=== PATIENT | female | born 1995 | race Caucasian/White ===

== ENCOUNTER 2024-06-12 10:06 | Outpatient (CLI) | payer OTHER, SELFPAY ==
[2024-06-12 10:27] LABS: Hematocrit 34.1 % (37.0-47.0); Hemoglobin 11.3 g/dL (12.0-15.0); Mean Corpuscular HGB Conc 33.1 g/dl (32-36); Mean Corpuscular Hemoglobin 31.2 pg (26-34); Mean Corpuscular Volume 94.2 fl (80-100); Mean Platelet Volume 10.5 fl (7.4-10.4); Platelet Count Result 223 k/mm3 (150-375); Red Blood Count 3.62 M/mm3 (4.2-5.4); Red Cell Distribution Width 13.2 % (11.5-14.5); White Blood Count 5.7 K/mm3 (4.5-10.0)
--- OUTSIDE RECORDS SUMMARY | 2024-06-12 10:58 | XMS_ITS | CLINICAL SUMMARY ---
Author Name Roger Narayanan Address [address] [place] [phone] Phone Organization [facility] [address] Address [address] [place] [phone] Phone Care Team Providers Care Pointer Machine Operator Name Role Phone Visit, Nurse Unavailable Kirstie Velázquez Unavailable [phone] No Provider Unavailable Unavailable SOCIAL HISTORY Social History Observation Description Dates Observed Sex Female 1995 None recorded ALLERGIES AND ADVERSE REACTIONS No known allergies MEDICATIONS Medication Directions Start Date Form Frequency Route Duration Duration Units Status Strength Strength Units of Measure Ceftin Take 1 tablet (Oral) 2 times per day for 7 days for infection 16 table t 2 times per day Oral 7 days suspend ed 500 mg prednisone Take 1 tablet 2 times per day for 7 days for sinus/lung congestion 16 table t 2 times per day No route record ed 7 days suspend ed 10 mg promethazin e-codeine Take 1 tsp (Oral) 2 times per day for 7 days take after supper and HS for cough and congestion 16 syrup 2 times per day Oral 7 days suspend ed 6.25-10 mg/5 mL Gildess 24 Fe Take No date record ed No form recor ded No frequency recorded No route record ed No set duration recorded No set duration amount recorded active No dosage strength recorded No dosage strength units of measure recorded Keppra Take No date record ed No form recor ded No frequency recorded No route record ed No set duration recorded No set duration amount recorded active No dosage strength recorded No dosage strength units of measure recorded Trileptal Take No date record ed No form recor ded No frequency recorded No route record ed No set duration recorded No set duration amount recorded active No dosage strength recorded No dosage strength units of measure recorded PROBLEM LIST Names Dates Status Epilepsy, unspecified, not i ntractable, without status epilepticus (345.80, G40.909) No date recorded suspended SINUSITIS, ACUTE (461.8, J01.90) 20151130 suspended Otitis media, unspecified, right ear (382.9, H66 .91) 20151130 suspended Plantar wart (078.12, B07.0) 20171215 eloise pended 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 (648.40, R76.11) 20171215 suspended 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 (648.40, R76.11) 20171217 suspended Encounter for blood-alcohol and blood-drug test (Z02.83) 20211129 completed Other seizures No date recorded active Viral infection, unspecified 20211220 act jonathan FAMILY HISTORY Description Relation High BP Maternal Grandmother High BP Sister ENCOUNTERS Encounter Performer Location E/M Code E/M Label Date Diagnosi s visit Roger Oracio [facility] [place] [address] No E/M code recorded No E/M display label 20171217 Nonspecific reaction to tuberculin skin 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 active tuberculosis LAB RESULTS Overall Code Overall Text [Code] Result Type (Code) Result Text Result Value Relevant Reference Range Date Lab Name Street City State Zip Code No overall lab code recorded TB READ {QDJL250 80} QTY(1) No result type code recorded TB READ {READ86 580} QTY(1) No range recorded No lab name record ed No street recorded No city recor ded No state record ed No zip code recor ded INSURANCE PROVIDERS (PAYERS) Payer name Policy type / Coverage type Policy ID Covered republican ID Insurance type Policy Robertson FFS Self Pay [id number] None Recorded Primary ELIZAB ETH DAKSHA PROCEDURE NOTE Date Name Status Summary Text (N otes) 20171217 TB READ {[id number]} Completed TB READ {LSQF76524} QTY(1) None recorded None recorded None recorded None recorde d None recorded None recorded None recorded None recorde d PROCEDURES Date Name Status Summary Text (N otes) 20171217 TB READ {[id number]} Completed TB READ {OALX52358} QTY(1) None recorded None recorded None recorded None recorde d None recorded None recorded None recorded None recorde d ASSESSMENTS No information recorded LABORATORY REPORT NARRATIVE NOTE No information recorded PATHOLOGY REPORT NARRATIVE NOTE No information recorded IMAGING NARRATIVE Result Code Result Text Date Status Urgency Interp retation None None None None None None DISCHARGE SUMMARY NOTE * Allergies: No known allergies * Medication Current: Medication Directions Start Date Form Frequency Route Duration Duration Units Status Strength Strength Units of Measure Ceftin Take 1 tablet (Oral) 2 times per day for 7 days for infection table t 2 times per day Oral 7 days suspend ed 500 mg prednisone Take 1 tablet 2 times per day for 7 days for sinus/lung congestion table t 2 times per day No route record ed 7 days suspend ed 10 mg promethazin e-codeine Take 1 tsp (Oral) 2 times per day for 7 days take after supper and HS for cough and congestion syrup 2 times per day Oral 7 days suspend ed 6.25-10 mg/5 mL Gildess 24 Fe Take No date record ed No form recor ded No frequency recorded No route record ed No set duration recorded No set duration amount recorded active No dosage strength recorded No dosage strength units of measure recorded Keppra Take No date record ed No form recor ded No frequency recorded No route record ed No set duration recorded No set duration amount recorded active No dosage strength recorded No dosage strength units of measure recorded Trileptal Take No date record ed No form recor ded No frequency recorded No route record ed No set duration recorded No set duration amount recorded active No dosage strength recorded No dosage strength units of measure recorded * Plan of Care (advice, pending tests, pending diagnostic tests): Treatment Type Code Text Date Observatio n Data Instruction None recorded None recorded None recorded None recorded * Visit Diagnosis: Nonspecific reaction to tuberculin skin 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 active tuberculosis (R76.11) * Referrals: First Name Last Name NPI# Reason None recorded None recorded None recorded None recorde d HISTORY AND PHYSICAL NOTE * Reason for Visit: Patient Reports: TB skin test reading. Dictation: This section of EMR is not relevant for this visit Dictation: This section of EMR is not relevant for this visit * Family History: Description Relation High BP Maternal Grandmother High BP Sister * * Allergies: No known allergies * Problems: Names Dates Status Epilepsy, unspecified, not i ntractable, without status epilepticus (345.80, G40.909) No date recorded suspended SINUSITIS, ACUTE (461.8, J01.90) 20151130 suspended Otitis media, unspecified, right ear (382.9, H66 .91) 20151130 suspended Plantar wart (078.12, B07.0) 20171215 eloise pended 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 (648.40, R76.11) 20171215 suspended 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 (648.40, R76.11) 20171217 suspended Encounter for blood-alcohol and blood-drug test (Z02.83) 20211129 completed Other seizures No date recorded active Viral infection, unspecified 20211220 act jonathan * Vitals: BMI Body Mass Index Percentile Date Systolic Diastolic Head Circumference Head Circumference Percentile Height Oxygen Concentration Pulse Pulse Oximeter Respiratory Rate Temperature Weight Yrjbvj-rbw-cgqrhb Percentile None recorded None recorded None recorded None recorded None recorded None recorded None recorded None recorded None recorded None recorded None recorded None recorded None recorded None recorded None recorded * Review of Systems: * No data recorded * Plan of Care (advice, pending tests, pending diagnostic tests): Treatment Type Code Text Date Observatio n Data Instruction None recorded None recorded None recorded None recorded * Lab Results: Overall Code Overall Text [Code] Result Type (Code) Result Text Result Value Relevant Reference Range Date Lab Name Street [facility] State Zip Code No overall lab code recorded TB READ {AVSK209 80} QTY(1) No result type code recorded TB READ {READ86 580} QTY(1) No range recorded No lab name record ed No street recorded No city recor ded No state record ed No zip code recor ded * Radiology Results: Overall Code Overall Text [Code] Result Type (Code) Result Text Result Value Relevant Reference Range Date Lab Name [facility] Zip [facility] None recorded None recorded None recorded None recorded None recorded None recorded None recor ded None recor ded None recorde d None recor ded None record ed None recor ded * Visit Diagnosis: Nonspecific reaction to tuberculin skin 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 active tuberculosis (R76.11) * Referrals: First Name Last Name NPI# Reason None recorded None recorded None recorded None recorde d PLAN OF TREATMENT Treatment Type Code Text Date Instructio n Data Instruction None recorded None recorded None recorded None recorded CHIEF COMPLAINT AND REASON FOR VISIT NARRATIVE Patient Reports: TB skin test reading. Dictation: This section of EMR is not relevant for this visit Dictation: This section of EMR is not relevant for this visit
--- OUTSIDE RECORDS SUMMARY | 2024-06-12 10:58 | XMS_ITS | CLINICAL SUMMARY ---
Author Name Parish Leone MD Address [address] [place] [phone] Phone Organization [facility] [address] Address [address] [place] [phone] Phone Care Team Providers Care Legislative Correspondent Name Role Phone Parish Leone MD Unavailable [phone] Bias, Rachel Unavailable Parish Mi MD, MD Unavailable [phone] No Provider Unavailable Unavailable SOCIAL HISTORY Social History Observation Description Dates Observed Sex Female 1995 None recorded VITAL SIGNS BMI Body Mass Index Percentile Date Systolic Diastolic Head Circumference Head Circumference Percentile Height Oxygen Concentration Pulse Pulse Oximeter Respiratory Rate Temperature Weight Xibzaa-xpl-inxrkb Percentile 25.6 26 kg/m 2 Unknown 716 110 mmHg 74 mmHg Unknown Unknown 65 [in_i] Unknown 93 /min 98 % 16 /min 97.4 154 [lb_av] Unknown ALLERGIES AND ADVERSE REACTIONS No known allergies [...] Code E/M Label Date Diagnosi s visit [facility] [id number] Office or other outpatient visit (comprehensive, (comprehensive - moderate)) 20151130 SINUSITIS, ACUTE visit [facility] [id number] Office or other outpatient visit (comprehensive, (comprehensive - moderate)) 20151130 Otitis media, unspecified, right ear LAB RESULTS Overall Code Overall Text [Code] Result Type (Code) Result Text Result Value Relevant Reference Range Date Lab Name Street City State Zip Code No overall lab code recorded Discharge Patient [DC101] QTY(1) No result type code recorded Discharg e Patient [DC101] QTY(1) No range recorded No lab name recor ded No street recorde d No city recor ded No state record ed No zip code recor ded PROCEDURE NOTE Date Name Status Summary Text (N otes) 20151130 Discharge Patient Completed Discharge Patient [DC101] QTY(1) None recorded None recorded None recorded None recorde d None recorded None recorded None recorded None recorde d PROCEDURES Date Name Status Summary Text (N otes) 20151130 Discharge Patient Completed Discharge Patient [DC101] QTY(1) None recorded None recorded None recorded [...] None recorded None recorded * Visit Diagnosis: SINUSITIS, ACUTE (J01.90) Otitis media, unspecified, right ear (H66.91) * Referrals: First Name Last Name NPI# Reason None recorded None recorded None recorded None recorde d HISTORY AND PHYSICAL NOTE * Reason for Visit: Patient Reports: Sinus congestion [Onset: 3 Day(s)]; Sinus drainage [Onset: 3 Day(s)]; Earache [Onset: 3 Day(s) Reports Acute; Frequency: 3 Day(s); Duration: 3 Day(s); Arlet.: Reports Pressure, Moderate, URI Symptoms; Location: Reports Right; Free text: Sinus congestion and right ear feels 'popping'.; Intensity: Now-3]; Sore throat [Onset: 3 Day(s) Reports Acute; Frequency: 3 Day(s); Durati on: 3 Day(s); Hx of: Reports URI Symptoms; Free text: Sore throat and sinus drainage. No high fevers. Hoarse voice.; Intensity: Now-1]; Cough [Onset: 3 Day(s)]. * Family History: Description Relation High BP [...] Pulse Pulse Oximeter Respiratory Rate Temperature Weight Oicpmq-gno-slcfsw Percentile 25.6 26 kg/m 2 Unknown 71 110 mmHg 74 mmHg Unknown Unknown 65 [in_i] Unknown 93 /min 98 % 16 /min 97.4 154 [lb_av] Unknown * Review of Systems: * Allergy/Immun* Patient Denies* Immunocompromised * Constitutional* Patient Denies* Chills * Fever * ENT/Mouth* Patient Reports* Earache (Onset: 3 Day(s); Frequency: 3 Day(s); Duration: 3 Day(s); Intensity: Now-3; Onset: ReportsAcute; Arlet.: Reports Pressure; Arlet.: Reports Moderate; Location: Reports Right; Hx of: Reports URI Symptoms; Free text: Sinus congestion and right ear feels 'popping'.) * Sinus drainage (Onset: 3 Day(s)) * Sore throat (Onset: 3 Day(s); Onset: Reports Acute; Hx of: Reports URI Symptoms; Frequency: 3 Day(s); Duration: 3 Day(s); Intensity: Now-1; Free text: Sore throat and sinus drainage. No high fevers. Hoarse voice.) * Eyes* Patient Denies* Eye mattering * Eye redness * GI* Patient Denies* Nausea * Jared/Lymph* Patient Denies* Easy bruising * Musc/Skel* Patient Denies* Myalgias * Neurologic* Patient Denies* Dizziness * Headache * Respiratory* Patient Reports* Cough (Onset: 3 Day(s)) * Patient Denies* Sputum * Wheezing * Skin/Breast* Patient Denies* Rash * Exam: * General : Normal* Normal : Patient is oriented to time, place and person,Well developed * Skin, Hair, Nails : Normal* Normal : No rashes noted * Head : Normal* Normal : Face is grossly normal * Eyes : Normal* Normal : Lids and lashes are normal,Normal conjunctiva * Ears : Abnormal* Abnormal : Right TM Retracted,Right TM appears Dull, no light reflex seen * Nose : Abnormal* Abnormal : Boggy nasal mucosa both nasal passages noted,Congested nasal mucosa both nasal passages noted * Oral pharynx : Abnormal* Normal : Lips appear normal,Normal tongue,Normal soft palate * Abnormal : Purulent drainage posterior pharynx,Hoarse voice * Neck : Normal* Normal : No deformity of neck * Lymph Nodes : Abnormal* Abnormal : Tender right anterior cervicle adenopathy on exam * Chest/Lungs : Normal* Normal : No signs of respiratory distress,Chest is clear to auscultation bilaterally upon exam,Tracheal level cough * Cardiac : Normal* Normal : Normal heart rate noted * Neurological : Normal* Normal : Patient is appropriately alert * Musculoskeletal : Normal* Normal : Normal Posture * Psych : Normal* Normal : Memory appears normal,Insight appears normal,Patient is orented to time, place and person * Plan of Care (advice, pending tests, pending diagnostic tests): Treatment Type Code Text Date Observatio n Data Instruction None recorded None recorded None recorded None recorded * Lab Results: Overall Code Overall Text [Code] Result Type (Code) Result Text Result Value Relevant Reference Range Date Lab Name [facility] [place] [facility] [place] overall lab code recorded Discharge Patient [DC101] QTY(1) No result type code recorded Discharg e Patient [DC101] QTY(1) No range recorded No lab name recor ded No street recorde d No city recor ded No state record ed No zip code recor ded * Radiology Results: Overall Code Overall Text [Code] Result Type (Code) Result Text Result Value Relevant Reference Range Date Lab Name [facility] [place] [facility] None recorded None recorded None recorded None recorded None recorded None recorded None recor ded None recor ded None recorde d None recor ded None record ed None recor ded * Visit Diagnosis: SINUSITIS, ACUTE (J01.90) Otitis media, unspecified, right ear (H66.91) * Referrals: First Name Last Name NPI# Reason None recorded None recorded None recorded None recorde d PLAN OF TREATMENT Treatment Type Code Text Date Instructio n Data Instruction None recorded None recorded None recorded None recorded CHIEF COMPLAINT AND REASON FOR VISIT NARRATIVE Patient Reports: Sinus congestion [Onset: 3 Day(s)]; Sinus drainage [Onset: 3 Day(s)]; Earache [Onset: 3 Day(s) Reports Acute; Frequency: 3 Day(s); Duration: 3 Day(s); Arlet.: Reports Pressure, Moderate, URI Symptoms; Location: Reports Right; Free text: Sinus congestion and right ear feels 'popping'.; Intensity: Now-3]; Sore throat [Onset: 3 Day(s) Reports Acute; Frequency: 3 Day(s); Durati on: 3 Day(s); Hx of: Reports URI Symptoms; Free text: Sore throat and sinus drainage. No high fevers. Hoarse voice.; Intensity: Now-1]; Cough [Onset: 3 Day(s)].
--- OUTSIDE RECORDS SUMMARY | 2024-06-12 10:58 | XMS_ITS | CLINICAL SUMMARY ---
Author Name Visit, Nurse Address [address] [place] [address] Phone Organization [facility] Address [address] [place] [address] Phone Care Team Providers Care Mailroom Personnel Name Role Phone Visit, Nurse Unavailable Jolly Navarrete Unavailable [phone] Jolly Mcbride Unavailable [phone] No Provider Unavailable Unavailable SOCIAL HISTORY Social [...] Code E/M Label Date Diagnosi s visit Nurse Visit [facility] No E/M code recorded No E/M display label 20211129 Encounter for blood-alcohol and blood-drug test LAB RESULTS Overall Code Overall Text [Code] Result Type (Code) Result Text Result Value Relevant Reference Range Date Lab Name Street City State Zip Code No overall lab code recorded NON DOT UDS {79253.N ONDOT} QTY(1) No result type code recorded NON DOT UDS {32790. NONDOT} QTY(1) No range recorded 194293 16 No lab name record ed No street recorded No city recor ded No state record ed No zip code recor ded No overall lab code recorded TB skin test with read [22932] QTY(1) No result type code recorded TB skin test with read [16377] QTY(1) No range recorded 706112 16 No lab name record ed No street recorded No city recor ded No state record ed No zip code recor ded INSURANCE PROVIDERS (PAYERS) Payer name Policy type / Coverage type Policy ID Covered libertarian ID Insurance type Policy Robertson [employer] NEW EMPLOYEE* Unknown [id number] None Recorded [facility] [employer] NEW EMPLOYEE* PROCEDURE NOTE Date Name Status Summary Text (N otes) 20211129 NON DOT UDS {04282.NONDOT} Completed N ON DOT UDS {75933.NONDOT} QTY(1) 20211129 TB skin test with read Completed TB sk in test with read [22748] QTY(1) None recorded None recorded None recorded None recorde d 20211129 TB skin test with read Completed TB sk in test with read [39558] QTY(1) PROCEDURES Date Name Status Summary Text (N otes) 20211129 NON DOT UDS {88174.NONDOT} Completed N ON DOT UDS {88203.NONDOT} QTY(1) 20211129 TB skin test with read Completed TB sk in test with read [02935] QTY(1) None recorded None recorded None recorded None recorde d 20211129 TB skin test with read Completed TB sk in test with read [37491] QTY(1) ASSESSMENTS No information recorded LABORATORY REPORT NARRATIVE [...] recorded None recorded None recorded None recorded Observation NON DOT UDS None specified No Obser vation data available for this record Observation TB skin test wit h read None specified No Observation data available for this record * Visit Diagnosis: Encounter for blood-alcohol and blood-drug test (Z02.83) * Referrals: First Name Last Name NPI# Reason None recorded None recorded None recorded None recorde d HISTORY AND PHYSICAL NOTE * Reason for Visit: Patient Reports: Drug Screen; PPD/Skin Test. Dictation: This section of EMR is not [...] 20151130 suspended Plantar wart (078.12, B07.0) 20171215 eolise pended Nonspecific reaction to tube rculin skin [...] Pulse Pulse Oximeter Respiratory Rate Temperature Weight Icoqnk-vxn-frdiko Percentile None recorded None recorded None recorded [...] recorded None recorded None recorded None recorded Observation NON DOT UDS None specified No Obser vation data available for this record Observation TB skin test wit h read None specified No Observation data available for this record * Lab Results: Overall Code Overall Text [Code] Result Type (Code) Result Text Result Value Relevant Reference Range Date Lab Name [facility] Zip Code No overall lab code recorded NON DOT UDS {31162.N ONDOT} QTY(1) No result type code recorded NON DOT UDS {72236. NONDOT} QTY(1) No range recorded 613630 16 No lab name record ed No street recorded No city recor ded No state record ed No zip code recor ded No overall lab code recorded TB skin test with read [75902] QTY(1) No result type code recorded TB skin test with read [12582] QTY(1) No range recorded 272435 16 No lab name record ed No street recorded No city recor ded No state record ed No zip code recor ded * Radiology Results: Overall Code Overall Text [Code] Result Type (Code) Result Text Result Value Relevant Reference Range Date Lab Name [facility] Zip Code None recorded None recorded None recorded None recorded None recorded None recorded None recor ded None recor ded None recorde d None recor ded None record ed None recor ded * Visit Diagnosis: Encounter for blood-alcohol and blood-drug test (Z02.83) * Referrals: First Name Last Name NPI# Reason None recorded None recorded None recorded None recorde d PLAN OF TREATMENT Treatment Type Code Text Date Instructio n Data Instruction None recorded None recorded None recorded None recorded Observation NON DOT UDS None specified No instr uction data available for this record Observation TB skin test wit h read None specified No instruction data available for this record CHIEF COMPLAINT AND REASON FOR VISIT NARRATIVE Patient Reports: Drug Screen; PPD/Skin Test. Dictation: This section of EMR is not relevant for this visit Dictation: This section of EMR is not relevant for this visit
--- OUTSIDE RECORDS SUMMARY | 2024-06-12 10:58 | XMS_ITS | CLINICAL SUMMARY ---
Author Name Dotty Figueroa ADVERTISEMENT DISTRIBUTOR Address [address] [place] [address] Phone Organization [facility] Address [address] [place] [address] Phone Care Team Providers Care Financial Reporting Manager Name Role Phone Dotty Figueroa NP Unavailable [phone] Zainab Mack Unavailable Gaby Shen Unavailable No Provider Unavailable Unavailable SOCIAL HISTORY Social History Observation Description Dates Observed Sex Female 1995 None recorded VITAL SIGNS BMI Body Mass Index Percentile Date Systolic Diastolic Head Circumference Head Circumference Percentile Height Oxygen Concentration Pulse Pulse Oximeter Respiratory Rate Temperature Weight Ixwvak-wav-nlhasg Percentile 26.6 25 kg/m 2 Unknown 14637 806 113 mmHg 72 mmHg Unknown Unknown 65 [in_i] Unknown 72 /min 99 % 16 /min 97.9 160 [lb_av] Unknown ALLERGIES AND ADVERSE REACTIONS No [...] Code E/M Label Date Diagnosi s visit Dotty Bridgescock [facility] Urgent [facility] No E/M code recorded No E/M display label 20211220 Viral infection, unspecified LAB RESULTS Overall Code Overall Text [Code] Result Type (Code) Result Text Result Value Relevant Reference Range Date Lab Name Street City State Zip Code No overall lab code recorded Monospot [21355] No result type code recorded Monospot [44557] Negative Normal = Negative 14706 806 [facility] [place] [address] [place] [address] No overall lab code recorded Covid-19 Antigen Test CARD [37281] 64471-6 Covid-19 Antigen Test CARD Negative Normal = Negative 00074 806 [facility] [address] [facility] [address] No overall lab code recorded Influenza [10039] No result type code recorded Flu A Negative Normal = Negative 12322 806 [facility] [address] [facility] [address] No overall lab code recorded Influenza [71313] No result type code recorded Flu B Negative Normal = Negative 25837 806 [facility] [address] [facility] [address] No overall lab code recorded Combo COVID/Flu {16873.FL U} QTY(1) No result type code recorded Combo COVID/Fl u {55956.F WILLAM} QTY(1) No range recorded 87857 806 [facility] [address] [facility] [address] INSURANCE PROVIDERS (PAYERS) Payer name Policy type / Coverage type Policy ID Covered green party ID Insurance type Policy Robertson FFS Self Pay [id number] None Recorded Primary [facility] DAKSHA PROCEDURE NOTE Date Name Status Summary Text (N otes) 20211220 Combo COVID/Flu {58591.FLU} Completed Combo COVID/Flu {37702.FLU} QTY(1) 55636360 Monospot Completed Monospot [31474 ] QTY(1) The mono test today is NEGATIVE [id number] 85972.FFS2 Completed Office Visit De tailed None recorded None recorded None recorded None recorde d [id number] Monospot Completed Monospot [68281 ] QTY(1) The mono test today is NEGATIVE PROCEDURES Date Name Status Summary Text (N otes) 20211220 Combo COVID/Flu {87998.FLU} Completed Combo COVID/Flu {16911.FLU} QTY(1) 09171776 Monospot Completed Monospot [78808 ] QTY(1) The mono test today is NEGATIVE [id number] 89509.FFS2 Completed Office Visit De tailed None recorded None recorded None recorded None recorde d [id number] Monospot Completed Monospot [98236 ] QTY(1) The mono test today is NEGATIVE ASSESSMENTS No information recorded LABORATORY REPORT NARRATIVE [...] Code Text Date Observatio n Data Instruction [id number] Patient Education 2021-12-20 Drink plenty of fluids. Instruction [id number] Patient Education 2021-12-[address] of rest. Instruction [id number] Patient Education 2021-12-20 Return to clinic if signs or symptoms persist or worsen. Instruction [id number] Patient Education 2021-12-20 Tyleno l every 4-6 hours as needed and/or Ibuprofen every 6-8 hours as needed, over the counter for pain or fever. Instruction [id number] Patient Education 2021-12-20 Moistu rize sinues with saline nasal spray. Observation 54400-7 Combo COVID/Flu None specified No O bservation data available for this record * Visit Diagnosis: Viral infection, unspecified (B34.9) * Referrals: First Name Last Name NPI# Reason None recorded None recorded None recorded None recorde d HISTORY AND PHYSICAL NOTE * Reason for Visit: Patient Reports: *COVID-19 Testing; Chills [Onset: 3 Day(s)]; Fatigue/Weakness [Onset: 3 Day(s)]; Headache [Onset: 3 Day(s)]; Sore throat [Onset: 3 Day(s); Free text: No congestion, but sinuses feel dry. Slight diarrhea.]; Muscle aches [Onset: 3 Day(s)]. * Family History: Description [...] Pulse Pulse Oximeter Respiratory Rate Temperature Weight Oireiy-wob-nefqwp Percentile 26.6 25 kg/m 2 Unknown 806 113 mmHg 72 mmHg Unknown Unknown 65 [in_i] Unknown 72 /min 99 % 16 /min 97.9 160 [lb_av] Unknown * Review of Systems: * *Systemic* Patient Reports* Chills (Onset: 3 Day(s)) * Headache (Onset: 3 Day(s)) * ENT/Mouth* Patient Reports* Sore throat (Onset: 3 Day(s); Free text: No congestion, but sinuses feel dry. Slight diarrhea.) * Exam: * General : Normal* Normal : Patient is oriented to time, place and person,No acute distress,Patient appears non-toxic * Ears : Normal* Normal : External ear appears normal. Ear canals and tympanic membranes are normal. * Nose : Normal* Normal : Nasal discharge absent,Norrmal nostril(s) noted * Oral pharynx : Normal* Normal : Lips appear normal,Normal tongue,Normal posterior pharynx * Neck : Normal* Normal : No deformity of neck,Full cervical range of motion noted * Lymph Nodes : Normal* Normal : No lymphadenopathy noted on exam * Chest/Lungs : Normal* Normal : Chest normal to auscultation and/or percussion * Cardiac : Normal* Normal : Heart normal to auscultation,Normal heart rate noted,Normal rhythm noted * Psych : Normal* Normal : Patient is oriented to time, place and person,Mood appears to be Normal,Affect Normal * Plan of Care (advice, pending tests, pending diagnostic tests): Treatment Type Code Text Date Observatio n Data Instruction [id number] Patient Education 2021-12-20 Drink plenty of fluids. Instruction [id number] Patient Education 2021-12-[address] of rest. Instruction [id number] Patient Education 2021-12-20 Return to clinic if signs or symptoms persist or worsen. Instruction [id number] Patient Education 2021-12-20 Tyleno l every 4-6 hours as needed and/or Ibuprofen every 6-8 hours as needed, over the counter for pain or fever. Instruction [id number] Patient Education 2021-12-20 Moistu rize sinues with saline nasal spray. Observation 66045-1 Combo COVID/Flu None specified No O bservation data available for this record * Lab Results: Overall Code Overall Text [Code] Result Type (Code) Result Text Result Value Relevant Reference Range Date Lab Name Street [facility] Zip Code No overall lab code recorded Monospot [33714] No result type code recorded Monospot [29058] Negative Normal = Negative 72122 806 [facility] Urgen Care [facility] [address] [facility] [address] No overall lab code recorded Covid-19 Antigen Test CARD [30644] 07325-4 Covid-19 Antigen Test CARD Negative Normal = Negative 37274 806 [facility] Urgen t Care [facility] [address] [facility] [address] No overall lab code recorded Influenza [17164] No result type code recorded Flu A Negative Normal = Negative 96840 806 [facility] [address] [facility] [address] No overall lab code recorded Influenza [88033] No result type code recorded Flu B Negative Normal = Negative 27925 806 [facility] [address] [facility] [address] No overall lab code recorded Combo COVID/Flu {54512.FL U} QTY(1) No result type code recorded Combo COVID/Fl u {77355.F WILLAM} QTY(1) No range recorded 25281 806 [facility] [address] [facility] [address] * Radiology Results: Overall Code Overall Text [Code] Result Type (Code) Result Text Result Value Relevant Reference Range Date Lab Name [facility] Zip Code None recorded None recorded None recorded None recorded None recorded None recorded None recor ded None recor ded None recorde d None recor ded None record ed None recor ded * Visit Diagnosis: Viral infection, unspecified (B34.9) * Referrals: First Name Last Name NPI# Reason None recorded None recorded None recorded None recorde d PLAN OF TREATMENT Treatment Type Code Text Date Instructio n Data Instruction [id number] Patient Education 2021-12-20 Moistu rize sinues with saline nasal spray. Instruction [id number] Patient Education 2021-12-20 Drink plenty of fluids. Instruction [id number] Patient Education 2021-12-[address] of rest. Instruction [id number] Patient Education 2021-12-20 Return to clinic if signs or symptoms persist or worsen. Instruction [id number] Patient Education 2021-12-20 Tyleno l every 4-6 hours as needed and/or Ibuprofen every 6-8 hours as needed, over the counter for pain or fever. Instruction [id number] Patient Education 2021-12-20 Moistu rize sinues with saline nasal spray. Observation 47313-7 Combo COVID/Flu None specified No i nstruction data available for this record CHIEF COMPLAINT AND REASON FOR VISIT NARRATIVE Patient Reports: *COVID-19 Testing; Chills [Onset: 3 Day(s)]; Fatigue/Weakness [Onset: 3 Day(s)]; Headache [Onset: 3 Day(s)]; Sore throat [Onset: 3 Day(s); Free text: No congestion, but sinuses feel dry. Slight diarrhea.]; Muscle aches [Onset: 3 Day(s)].
--- OUTSIDE RECORDS SUMMARY | 2024-06-12 10:59 | XMS_ITS | CLINICAL SUMMARY ---
Author Name Roger Narayanan Address [address] [place] [address] Phone Organization [facility] - [address] Address [address] [place] [phone] Phone Care Team Providers Care Roller Skates Assembler Name Role Phone Visit, Nurse Unavailable Oly Hall Unavailable Kirstie Velázquez Unavailable [phone] No Provider Unavailable Unavailable SOCIAL HISTORY [...] No dosage strength units of measure recorded tuberculin PPD No directions recorded No date record ed solut ion No frequency recorded No route record ed No set duration recorded No set duration amount recorded active 5 tub. unit /0.1 mL PROBLEM LIST Names Dates Status Epilepsy, unspecified, [...] Code E/M Label Date Diagnosi s visit [place] [address] No E/M code recorded No E/M display label 20171215 Plantar wart visit [facility] No E/M code recorded No E/M display label 20171215 Nonspecific reaction to tuberculin skin 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 active tuberculosis visit [facility] No E/M code recorded No E/M display label 20171215 Screening examination for pulmonary tuberculosis LAB RESULTS Overall Code Overall Text [Code] Result Type (Code) Result Text Result Value Relevant Reference Range Date Lab Name Street City State Zip Code No overall lab code recorded TB skin test with read [54563] QTY(1) No result type code recorded TB skin test with read [76203] QTY(1) No range recorded No lab name record ed No street recorded No city recor ded No state record ed No zip code recor ded INSURANCE PROVIDERS (PAYERS) Payer name Policy type / Coverage type Policy ID Covered libertarian ID Insurance type Policy Robertson FFS Self Pay [id number] None Recorded Primary ELIZAB ETH DAKSHA PROCEDURE NOTE Date Name Status Summary Text (N otes) 20171215 TB READ {[id number]} Completed TB READ {[id number]} QTY(1) 20171215 TB skin test with read Completed TB sk in test with read [50902] QTY(1) 20171215 TB skin test with read Completed TB sk in test with read [48156] QTY(1) None recorded None recorded None recorded None recorde d 20171215 TB skin test with read Completed TB sk in test with read [31093] QTY(1) 20171215 TB skin test with read Completed TB sk in test with read [32745] QTY(1) PROCEDURES Date Name Status Summary Text (N otes) 20171215 TB READ {[id number]} Completed TB READ {[id number]} QTY(1) 20171215 TB skin test with read Completed TB sk in test with read [03540] QTY(1) 20171215 TB skin test with read Completed TB sk in test with read [40890] QTY(1) None recorded None recorded None recorded None recorde d 20171215 TB skin test with read Completed TB sk in test with read [55886] QTY(1) 20171215 TB skin test with read Completed TB sk in test with read [54679] QTY(1) ASSESSMENTS No information recorded LABORATORY REPORT [...] None recorded None recorded None recorded Observation TB skin test wit h read None specified No Observation data available for this record * Visit Diagnosis: Plantar wart (B07.0) 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 * Family History: Description Relation High BP [...] Pulse Pulse Oximeter Respiratory Rate Temperature Weight Pbbchi-bdk-jfidmq Percentile None recorded None recorded None recorded [...] None recorded None recorded None recorded Observation TB skin test wit h read None specified No Observation data available for this record * Lab Results: Overall Code Overall Text [Code] Result Type (Code) Result Text Result Value Relevant Reference Range Date Lab Name [facility] Zip Code No overall lab code recorded TB skin test with read [86355] QTY(1) No result type code recorded TB skin test with read [08200] QTY(1) No range recorded No lab name record ed No street recorded No city recor ded No state record ed No zip code recor ded * Radiology Results: Overall Code Overall Text [Code] Result Type (Code) Result Text Result Value Relevant Reference Range Date Lab Name [facility] Zip Code None recorded None recorded None recorded None recorded None recorded None recorded None recor ded None recor ded None recorde d None recor ded None record ed None recor ded * Visit Diagnosis: Plantar wart (B07.0) Nonspecific reaction to tuberculin skin 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 active tuberculosis (R76.11) Screening examination for pulmonary tuberculosis ([id number]) * Referrals: First Name Last Name NPI# Reason None recorded None recorded None recorded None recorde d PLAN OF TREATMENT Treatment Type Code Text Date Instructio n Data Instruction None recorded None recorded None recorded None recorded Observation TB skin test wit h read None specified No instruction data available for this record CHIEF COMPLAINT AND REASON FOR VISIT NARRATIVE Patient Reports: TB skin test.
[2024-06-12 11:24] LABS: HIV 1/2 Ab P24 Ag Result Negative (Negative)
[2024-06-12 11:31] LABS: Hepatitis B Surface Antigen Negative (Negative); Rubella IgG Antibody 31.1 IU/ML
[2024-06-12 12:07] LABS: Rapid Plasma Reagin Non-Reactive (NonReactive)
[2024-06-13 03:18] LABS: Varicella IgG Antibody 9.78 S/CO
== END 2024-06-12 10:07 | disposition home or self-care (01) ==
LOC: ANHLAB 10:07
PROVIDERS: Visit Provider Student in an Organized Health Care Education/Training Program
DX: N91.2 Amenorrhea, unspecified (principal)
CPT/HCPCS: 36415; 84702; 85027; 86592; 86644; 86703; 86747; 86762; 86787; 86850; 86900; 86901; 87086; 87340; G0432